=== PATIENT | female | born 1985 | race Caucasian/White ===

== ENCOUNTER 2016-12-24 11:36 | Emergency (ER) | payer MEDICAID, OTHER ==
[~2016-12-24] VITALS: Wt 50.5 kg
[~2016-12-24 11:36] MED LIST: ACET500C5 PO; CYCL-319 PO; HYDR-3010 PO; IBUP400T22 PO; ONDA4TAB14 PO; PRED20TA PO; PRENAT PO
--- NOTE | 2016-12-24 12:11 | ERD ---
ER Documentation Chief Complaint Date/Time DATE: 12/24/16 TIME: 12:07 Chief Complaint cough, milad earache, 4 mo preg HPI 31-year-old female complaining of cough and nasal congestion 2 weeks. Cough is nonproductive, worse at night. She reports shortness of breath with coughing fits. Patient also has headache and ear pain, as well as chest pain when coughing. Patient is approximately 4 months , RUSS 05/22/2017, . Patient stated that because of coughing, she is having pelvic pain as well. Denies vaginal bleeding. Denies fever or chills. Denies abdominal pain , vomiting or diarrhea. Positive sick contacts at home. ROS All systems reviewed and are negative except as per history of present illness. Medications Home Meds Active Scripts Sodium Chloride (Saline Nasal Mist) 126 Ml Mist, 2 SPRAY NASAL Q2H Y for NASAL CONGESTION, #1 BOTTLE Prov:BRITTANY STEIN NP 12/24/16 Acetaminophen* (Tylophen*) 500 Mg Capsule, 1 CAP PO Q6H Y for PAIN AND OR ELEVATED TEMP, #20 CAP Prov:BRITTANY STEIN NP 12/24/16 Ondansetron (Ondansetron Odt) 4 Mg Tab.rapdis, 4 MG PO Q8 Y for NAUSEA AND/OR VOMITING, #20 TAB Prov:HILARY BLEVINS NP 10/07/16 Acetaminophen* (Tylophen*) 500 Mg Capsule, 1 CAP PO Q6H Y for PAIN AND OR ELEVATED TEMP, #20 CAP Prov:HILARY BLEVINS NP 10/07/16 Multivit/Min/Fol Ac/Iron/Pren* ( S*) 1 Tab Tab, 1 TAB PO DAILY, #30 TAB Prov:SOBEIDA SIU PA-C 09/24/16 Acetaminophen* (Tylophen*) 500 Mg Capsule, 1 CAP PO Q6H Y for PAIN AND OR ELEVATED TEMP, #20 CAP Prov:SOBEIDA SIU PA-C 09/24/16 Ibuprofen* (Motrin*) 400 Mg Tab, 400 MG PO Q6, #30 TAB Prov:SHERYL SMITH NP 10/26/15 Cyclobenzaprine Hcl* (Cyclobenzaprine Hcl*) 10 Mg Tablet, 10 MG PO BID, #15 TAB Prov:SHERYL SMITH NP 10/26/15 Hydroxyzine Hcl* (Hydroxyzine Hcl*) 10 Mg Tablet, 10 MG PO Q6H Y for ITCHING, # 10 TAB Prov:BRENNON YEAGER PA-C 07/03/15 Prednisone* (Prednisone*) 20 Mg Tab, 40 MG PO DAILY for 3 Days, TAB Prov:BRENNON YEAGER PA-C 07/03/15 Allergies Allergies: Coded Allergies: No Known Drug Allergies (Verified Allergy, Unknown, 12/24/16) PMhx/Soc Medical and Surgical Hx: pt denies Medical Hx History of Surgery: No Anesthesia Reaction: No Hx Neurological Disorder: No Hx Respiratory Disorders: No Hx Cardiac Disorders: No Hx Psychiatric Problems: No Hx Miscellaneous Medical Probl: No Hx Alcohol Use: No Hx Substance Use: No Hx Tobacco Use: No Smoking Status: Never smoker Physical Exam Vitals Vital Signs Date Time Temp Pulse Resp B/P Pulse Ox O2 Delivery O2 Flow Rate FiO2 12/24/16 11:38 98.8 109 20 136/58 100 Physical Exam General impression: Well-developed, well-nourished. Alert, oriented, in no acute distress Head: Normocephalic, atraumatic. Eyes: PERRL, EOM normal. Conjunctiva not injected. ENT: External canals clear. TM's pearly jackson. Nasal mucosa erythematous and swollen with clear nasal discharge. Oral mucosa and oropharynx are normal. Neck: Supple, nontender. No lymphadenopathy. No nuchal rigidity. Respiration: Normal respiratory effort. Lungs clear to auscultate bilaterally. No wheezes, rales or rhonchi. Cardiovascular: Regular rate and rhythm. No murmurs or extra heart sounds. Abdomen: Abdomen normal to inspection. Nontender. No masses or organomegaly. Bowel sounds normal. Neuro: Mental status normal, speech normal. NURSING HOME MANAGER grossly intact. Skin: Normal turgor. No rash or lesions. Psych: Normal mood and affect. Results 24 hrs PROCEDURE: Obstetrical ultrasound. CLINICAL INDICATION: , evaluation. Pelvic pain. TECHNIQUE: Transabdominal sonographic images of the pelvis are obtained. COMPARISON: OB ultrasound 10/07/2016 FINDINGS: The cervix is closed with a length of 4.35 cm . Single intrauterine gestation. There is a vertex presentation. Measurements were made in order to determine age. The results are as follows: BPD = 4.40 cm HC = 16.03 cm AC = 14.06 cm FL = 2.81 cm Heart rate = 152 beats per minute The placenta is posterior. No evidence of placental abruption. Lower margin of the placenta is relationship to the cervix is not well visualized. Ovaries are not visualized. IMPRESSION: Single intrauterine gestation of approximately 19 weeks 0 days by ultrasound criteria. Estimated weight = 270 g; 65 percentile for estimated ultrasound age. Lower margin of the placenta in relationship to the cervix is not well visualized. Recommend follow-up examination. RPTAT: AADD .Giles Putnam MD, MD Date Time Electronically viewed and signed by .Giles Putnam MD, MD on 12/24/2016 12:48 .B/ CC: BRITTANY STEIN. MICROBIOLOGICAL LAB TECHNICIAN Procedures/MDM Patient is afebrile, in no respiratory distress. Lungs are clear to auscultate. I doubt that patient has pneumonia or bronchitis. Likely patient's symptoms are result of viral upper respiratory infection. She does not have any sign of otitis media or otitis externa, her ear pain is likely due to nasal congestion. OB ultrasound was obtained at patient's request due to pelvic pain. OB ultrasound showed a normal intrauterine . Patient appears well, stable for discharge and outpatient management. Medical decision making shared with patient and family. Education provided to patient and family. Patient and family expressed understanding of the plan. Medications on discharge: Saline nasal spray, Tylenol. Follow-up: Primary care provider in 2-3 days or return to ED if worse. BRITTANY STEIN NP Dec 24, 2016 12:11
[2016-12-24] MEDS ORDERED: ACET500C5 PO (12:13)
[2016-12-24] MEDS ORDERED: SODI126M NASAL (12:13)
--- NOTE | 2016-12-24 12:48 | RADRPT ---
PROCEDURE: Obstetrical ultrasound. CLINICAL INDICATION: , evaluation. Pelvic pain. TECHNIQUE: Transabdominal sonographic images of the pelvis are obtained. COMPARISON: OB ultrasound 10/07/2016 FINDINGS: The cervix is closed with a length of 4.35 cm . Single intrauterine gestation. There is a vertex presentation. Measurements were made in order to determine age. The results are as follows: BPD = 4.40 cm HC = 16.03 cm AC = 14.06 cm FL = 2.81 cm Heart rate = 152 beats per minute The placenta is posterior. No evidence of placental abruption. Lower margin of the placenta is rela tionship to the cervix is not well visualized. Ovaries are not visualized. IMPRESSION: Single intrauterine gestation of approximately 19 weeks 0 days by ultrasound criteria. Estimated weight = 270 g; 65 percentile for estimated ultrasound age. Lower margin of the placenta in relationship to the cervix is not well visualized. Recommend follow -up examination. RPTAT: AADD .Giles Putnam MD, MD Date Time Electronically viewed and signed by .Giles Putnam MD, on 12/24/2016 12:48 .B/
== END 2016-12-24 13:39 | disposition home or self-care (01) ==
LOC: FTE 11:36
DX: O99.89 Other specified diseases and conditions complicating pregnancy, childbirth and the puerperium (principal); R05 Cough; R09.81 Nasal congestion; R06.02 Shortness of breath; R51 Headache; H92.03 Otalgia, bilateral; Z3A.19 19 weeks gestation of pregnancy
CPT/HCPCS: 76805; Z7502

== ENCOUNTER 2017-01-23 00:34 | Outpatient (CLI) | payer BC, MEDICAID ==
[~2017-01-23] VITALS: Ht 152.4 cm; Wt 53.3 kg
[~2017-01-23 00:34] MED LIST changes: +SODI126M NASAL
--- NOTE | 2017-01-23 01:55 | PN ---
Date/Time of Note Date/Time of Note DATE: 01/23/17 TIME: 01:51 OB Subjective Subjective Subjective Patient is a 23 weeks of gestation She presents with a chief complaint of lower extremity numbness greater on the right side She reports numbness in her hips greater on the right side She already discussed this with her OB and has a referral to see a neurologist She reports that she is able to walk without pain OB Objective HEENT: WNL Heart: Rhythm Normal Lungs: Clear Abdomen: WNL Cervical Dilatation: None OB Assessment/Plan Reason for admission: other Other Assessment: Bilateral lower extremities Doppler to R/O DVT Patient to follow-up with a neurologist for further evaluation LUH BELLAMY Jan 23, 2017 01:55
[2017-01-23 02:03] VITALS: BP 105/58; PULSE 85; RESP 16; Ht 152.4 cm; Wt 53.3 kg
[2017-01-23 02:04] LABS: ADD UMIC YES; URINE BILIRUBIN (Dip) NEGATIVE (NEGATIVE); URINE BLOOD (Dip) TRACE (NEGATIVE); URINE COLOR LT. YELLOW (YELLOW); URINE GLUCOSE (Dip) NEGATIVE (NEGATIVE); URINE KETONES (Dip) NEGATIVE (NEGATIVE); URINE LEUKOCYTE ESTERASE (Dip) NEGATIVE (NEGATIVE); URINE NITRITE (Dip) NEGATIVE (NEGATIVE); URINE TOTAL PROTEIN (Dip) NEGATIVE (NEGATIVE); URINE UROBILINOGEN (Dip) 0.2 E.U./dL (0.1-1.0)
[2017-01-23 02:18] LABS: BACTERIA,URINE OCCASIONAL; SQUAMOUS EPITHELIAL CELL,UR OCCASIONAL; URINE RBCS 0-2 /HPF (0)
[2017-01-23] MEDS ORDERED: LACTATED RINGER'S 1,000 ML IV ONE (02:30)
--- NOTE | 2017-01-23 03:23 | RADRPT ---
PROCEDURE: ULTRASOUND BILATERAL LOWER EXTREMITY VENOUS CLINICAL INDICATION: 31-year-old female with lower extremity pain. TECHNIQUE: Multiple sonographic images of the bilateral lower extremity deep venous system was obt ained utilizing grayscale, color-flow, compressive sonography and doppler imaging with augmentation. The images were reviewed on a PACS workstation. COMPARISON: None. FINDINGS: There is normal compressibility and flow within the common femoral, deep femoral, superficial femora l, popliteal, posterior tibial and peroneal veins. IMPRESSION: No sonographic evidence for deep venous thrombosis. .Omega Machado MD, MD Date Time Electronically viewed and signed by .Omega Machado MD, MD on 01/23/2017 03:22 .Parish/
--- NOTE | 2017-01-23 03:27 | RADRPT ---
PROCEDURE: ULTRASOUND INGUINAL SOFT TISSUE CLINICAL INDICATION: 31-year-old female with inguinal pain. TECHNIQUE: Multiple sonographic images of the right and left inguinal regions were obtained. The images were reviewed on a high-resolution PACS workstation. COMPARISON: None. FINDINGS: There is no evidence for abnormal echogenicity or peristalsis within the inguinal region. There is no evidence for a fluid collection. IMPRESSION: Unremarkable bilateral inguinal soft tissue ultrasound. .Omega Machado MD, MD Date Time Electronically viewed and signed by .Omega Machado MD, MD on 01/23/2017 03:26 .M/
--- NOTE | 2017-01-23 04:27 | TRIAGE ---
OB Triage Datetime Report Generated by CPN: 01/23/2017 04:26 Datetime: 01/23/2017 04:15 Stage of : OB Triage Datetime: 01/23/2017 04:00 Stage of : OB Triage Labor Evaluation Frequency: NONE Monitor Mode: External Duration (sec)2399: NONE Pattern: Normal: <= 5 Contractions in 10 Minutes Heart Rate FHR Baseline Rate: 145 Monitor Mode: External US FHR Baseline Changes: No Baseline Change Comments: APPROPRIATE FOR GESTATIONAL AGE Datetime: 01/23/2017 03:00 Labor Evaluation Frequency: NONE Monitor Mode: External Duration (sec)2399: NONE Pattern: Normal: <= 5 Contractions in 10 Minutes Heart Rate FHR Baseline Rate: 145 Monitor Mode: External US FHR Baseline Changes: No Baseline Change Comments: APPROPRIATE FOR GA Datetime: 01/23/2017 02:00 Labor Evaluation Frequency: NONE Monitor Mode: External Duration (sec)2399: NONE Pattern: Normal: <= 5 Contractions in 10 Minutes Heart Rate FHR Baseline Rate: 145 Monitor Mode: External US FHR Baseline Changes: No Baseline Change Variability: Moderate 6-25 bpm Datetime: 01/23/2017 01:07 Assessment Type: Triage EGA: 23.0 Maternal Assessment Level of Consciousness: Fully Conscious Headache: Denies Blurred Vision: No Respiratory Effort: Unlabored; Regular Rhythm; Equal Expansion Nausea/Vomiting: Denies RUQ Epigastric Pain: Denies Facial Edema: None Fall Risk Assessment History of Falling: (0) No Secondary Diagnosis: (0) No Ambulatory Aid: (0) Bedrest/Nurse Assist IV Therapy: (0) No Gait: (0) Normal/Bedrest/Immobile Mental Status: (0) Oriented to Own Ability Fall Score: 0 Fall Risk Score Definition: No Risk: No action required Datetime: 01/23/2017 01:06 Time of Arrival: 01/23/2017 00:23 Arrived By: Wheelchair Arrived From: Home Chief Complaint: ABD PAIN AND R LEG NUMBNESS X1DAY Movement: Present Contractions: Denies/Absent Rupture of Membranes: Denies Vaginal Bleeding: None Vaginal Discharge: Present Recent Sexual Intercouse: Denies Abdominal Trauma: Not Applicable Patient Complaints: Other Time Provider Notified: 01/23/2017 01:38 Provider Notified: DR BELLAMY Initial Plan: EFM,CALL OB, DOPPLER OF BILATERAL LOWER EXTREMITIES (Annotations: Data stored by DAVID Acuña on behalf of user)
== END 2017-01-23 04:20 | disposition home or self-care (01) ==
LOC: OBT 00:34 → L-D 00:39 → OBT 04:20
PROVIDERS: ATTEND Obstetrics & Gynecology
DX: O60.02 Preterm labor without delivery, second trimester (principal); O26.892 Other specified pregnancy related conditions, second trimester; M54.30 Sciatica, unspecified side; Z3A.23 23 weeks gestation of pregnancy
CPT/HCPCS: 36415; 76705; 81001; 81003; 93923; 96360; 96361; J7120; Z7500; G0463

== ENCOUNTER 2017-02-10 22:11 | Outpatient (CLI) | payer BC ==
[~2017-02-10] VITALS: Ht 154.9 cm; Wt 55.5 kg
[~2017-02-10 22:11] MED LIST changes: -ACET500C5 PO; -CYCL-319 PO; -HYDR-3010 PO; -IBUP400T22 PO; -ONDA4TAB14 PO; -PRED20TA PO; -SODI126M NASAL
[2017-02-10 22:35] VITALS: Ht 154.9 cm; Wt 55.5 kg
[2017-02-10 22:36] VITALS: BP 120/67; PULSE 99; RESP 20
[2017-02-10] MEDS ORDERED: FERR325C PO (22:40)
[2017-02-10] MEDS ORDERED: CALC-516 PO (22:40)
[2017-02-11] MEDS ORDERED: ACETAMINOPHEN 500 MG TAB PO ONE (00:10)
[2017-02-11 01:18] LABS: ADD UMIC NO; URINE BILIRUBIN (Dip) NEGATIVE (NEGATIVE); URINE BLOOD (Dip) NEGATIVE (NEGATIVE); URINE COLOR LT. YELLOW (YELLOW); URINE GLUCOSE (Dip) NEGATIVE (NEGATIVE); URINE KETONES (Dip) NEGATIVE (NEGATIVE); URINE LEUKOCYTE ESTERASE (Dip) NEGATIVE (NEGATIVE); URINE NITRITE (Dip) NEGATIVE (NEGATIVE); URINE TOTAL PROTEIN (Dip) NEGATIVE (NEGATIVE); URINE UROBILINOGEN (Dip) 0.2 E.U./dL (0.1-1.0)
--- NOTE | 2017-02-11 02:36 | RADRPT ---
PROCEDURE: Limited OB ultrasound CLINICAL INDICATION: labor TECHNIQUE: Limited sonographic evaluation of the gravid uterus was performed to assess the cervica l length COMPARISON: 01/08/2017. FINDINGS: Cervix measures 4.02 cm in length. IMPRESSION: Intrauterine with a cervical length of 4.02 cm. RPTAT: HMVK .Dereck Atkinson MD, Date Time Electronically viewed and signed by .Dereck Atkinson MD, MD on 02/11/2017 02:36 .K/
--- NOTE | 2017-02-11 04:06 | TRIAGE ---
OB Triage Datetime Report Generated by CPN: 02/11/2017 04:06 Datetime: 02/11/2017 03:00 Stage of : OB Triage Labor Evaluation Frequency: 0 Monitor Mode: External Pattern: Normal: <= 5 Contractions in 10 Minutes Resting Tone Lismore: Relaxed Heart Rate FHR Baseline Rate: 135 Monitor Mode: External US Variability: Moderate 6-25 bpm Accelerations: 15X15 Decelerations: None Category: Category I Pain Assessment Pain Scale: 3 Pain Presence: Intermittent Pain Type: Pressure Pain Location: Abdomen Pain Goal: 3 Pain Relief Measures: Comfort Measures Datetime: 02/11/2017 02:00 Stage of : OB Triage Labor Evaluation Frequency: 0 Monitor Mode: External Pattern: Normal: <= 5 Contractions in 10 Minutes Resting Tone Lismore: Relaxed Heart Rate FHR Baseline Rate: 140 Monitor Mode: External US Variability: Moderate 6-25 bpm Accelerations: 15X15 Decelerations: None Category: Category I Pain Assessment Pain Scale: 5 Pain Presence: Intermittent Pain Type: Pressure Pain Location: Abdomen Pain Goal: 3 Pain Relief Measures: Comfort Measures Datetime: 02/11/2017 01:22 Monitor Mode: External US Datetime: 02/11/2017 01:21 Comments: DOPPLER USED TO FIND FHTS Datetime: 02/11/2017 01:16 Monitor Mode: External Datetime: 02/11/2017 01:00 Stage of : OB Triage Labor Evaluation Frequency: X1 Monitor Mode: External Duration (sec)2399: 50 Quality: Mild Pattern: Normal: <= 5 Contractions in 10 Minutes Resting Tone Lismore: Relaxed Heart Rate FHR Baseline Rate: 145 Monitor Mode: External US Variability: Moderate 6-25 bpm Accelerations: 15X15 Decelerations: None Category: Category I Pain Assessment Pain Scale: 6 Pain Presence: Intermittent Pain Type: Pressure Pain Location: Abdomen Pain Goal: 3 Pain Relief Measures: Pain Medication Given (Annotations: MED WAS GIVEN AT 0019) Datetime: 02/11/2017 00:35 Stage of : OB Triage Datetime: 02/11/2017 00:00 Stage of : OB Triage Labor Evaluation Frequency: 0 Monitor Mode: External Pattern: Normal: <= 5 Contractions in 10 Minutes Resting Tone Lismore: Relaxed Heart Rate FHR Baseline Rate: 145 Monitor Mode: External US Variability: Moderate 6-25 bpm Accelerations: 15X15 Decelerations: None Category: Category I Pain Assessment Pain Scale: 6 Pain Presence: Intermittent Pain Type: Pressure Pain Location: Abdomen Pain Goal: 3 Pain Relief Measures: Comfort Measures Datetime: 02/10/2017 23:47 Stage of : OB Triage Datetime: 02/10/2017 23:42 Stage of : OB Triage Datetime: 02/10/2017 23:28 Stage of : OB Triage Datetime: 02/10/2017 23:00 Stage of : OB Triage Temperature Route: Oral Labor Evaluation Frequency: 0 Monitor Mode: External Pattern: Normal: <= 5 Contractions in 10 Minutes Resting Tone Lismore: Relaxed Heart Rate FHR Baseline Rate: 150 Monitor Mode: External US Variability: Moderate 6-25 bpm Accelerations: 15X15 Decelerations: None Category: Category I Pain Assessment Pain Scale: 6 Pain Presence: Intermittent Pain Type: Pressure Pain Location: Abdomen Pain Goal: 3 Pain Relief Measures: Comfort Measures Datetime: 02/10/2017 22:28 Assessment Type: Triage Maternal Assessment Level of Consciousness: Fully Conscious DTR's/Clonus: DTRs 2+; No Clonus Headache: Denies Blurred Vision: No Respiratory Effort: Unlabored Breath Sounds, Left: Clear and Equal Breath Sounds, Right: Clear and Equal Nausea/Vomiting: Denies RUQ Epigastric Pain: Denies Lower Extremities Edema: None Degree: None Upper Extremities Edema: None Degree: None Facial Edema: None Fall Risk Assessment History of Falling: (0) No Secondary Diagnosis: (0) No Ambulatory Aid: (0) Bedrest/Nurse Assist IV Therapy: (0) No Gait: (0) Normal/Bedrest/Immobile Mental Status: (0) Oriented to Own Ability Fall Score: 0 Fall Risk Score Definition: No Risk: No action required Datetime: 02/10/2017 22:21 Stage of : OB Triage Monitor Mode: External Monitor Mode: External US Datetime: 02/10/2017 22:19 Time of Arrival: 02/10/2017 22:09 EGA: 25.4 Arrived By: Wheelchair Arrived From: Home Chief Complaint: K sided low abd pain since yesterday. SOB Movement: Present Contractions: Denies/Absent Rupture of Membranes: Denies Vaginal Bleeding: None Vaginal Discharge: Denies Recent Sexual Intercouse: Denies Abdominal Trauma: Not Applicable Patient Complaints: Cramping Time Provider Notified: 02/11/2017 23:47 Provider Notified: JOSESITO Initial Plan: VS, EFM Datetime: 01/23/2017 01:07 EGA: 23.0 Fall Score: 0 Fall Risk Score Definition: No Risk: No action required
--- NOTE | 2017-02-11 06:53 | QN ---
Documentation Comment 31-year-old with IUP at 25 weeks and 4 days presented with complaint of left lower abdominal pain and shortness of breath since the night. Patient denies any leaking of fluid, vaginal bleeding, uterine contractions or decreased movement. Patient had a history of asthma in the past currently using albuterol. She also reports a recent episodes of cold. Complaining of cough as well. Physical examination: General appearance, alert and oriented 4, patient does not appear to be in any acute distress. She is in moderate distress Abdomen: Soft, gravid, fundal height consistent with gestational age , No uterine tenderness, there is mild tenderness in the left lower abdomen. No rebound tenderness, no guarding, no rigidity, no evidence of acute abdomen. Extremities: No calf tenderness, no click, no edema Lungs: Post expiratory wheezing in the mid to lower part of the lung noted CV: RRR HEENT: Congestion of the nasal mucosa otherwise unremarkable. PROCEDURE: Limited OB ultrasound CLINICAL INDICATION: labor TECHNIQUE: Limited sonographic evaluation of the gravid uterus was performed to assess the cervical length COMPARISON: 01/08/2017. FINDINGS: Cervix measures 4.02 cm in length. IMPRESSION: Intrauterine with a cervical length of 4.02 cm. RPTAT: HMVK Assessment: IUP at 25 weeks and 4 days Left lower abdominal pain, likely related to musculoskeletal round ligament pain. No evidence of UTI no evidence of acute abdomen Shortness of breath, history of asthma, post expiratory wheezing Symptoms related to worsening of asthma due to recent cold. Patient was given nebulizer treatment while in triage as well as receiving Robitussin for cough. Symptoms significantly improved. She also received a dose of thousand milligrams of Tylenol. Patient reports significant improvement of her symptoms. She denied any symptom at the time of discharge. Plan: DC patient home Continue using albuterol as needed Robitussin as needed cough Expectant management. Using Tylenol as needed pain or cold symptoms Follow-up with her OB clinic in 1-2 days or sooner as needed any other problem next Strict labor precaution and kick count discussed. Adequate p.o. warm fluid hydration discussed with the patient. Patient verbalized understanding and all questions were answered to the patient's best satisfaction JOSE BELLAMY MD Feb 11, 2017 06:53
== END 2017-02-11 03:20 | disposition home or self-care (01) ==
LOC: OBT 22:11 → L-D 22:11 → OBT 02-11 03:20
PROVIDERS: ATTEND Obstetrics & Gynecology
DX: O26.892 Other specified pregnancy related conditions, second trimester (principal); R10.32 Left lower quadrant pain; R06.02 Shortness of breath; J45.909 Unspecified asthma, uncomplicated
CPT/HCPCS: 76817; 81003; Z7500; Z7610; G0463

== ENCOUNTER 2017-05-08 09:56 | Inpatient (IN) | payer BC ==
[~2017-05-08] VITALS: Ht 152.4 cm; Wt 63.9 kg
[~2017-05-08 09:56] MED LIST changes: +CALC-516 PO; +FERR325C PO; +OXYTOCIN 30 UNITS/LR 500 ML BAG IV ONE
--- NOTE | 2017-05-08 10:52 | RADRPT ---
PROCEDURE: Biophysical profile CLINICAL INDICATION: distress, leaking fluid. TECHNIQUE: Color and venegas-scale ultrasound images of an intrauterine gestation were obtained. COMPARISON: None FINDINGS: A single live intrauterine gestation is identified in breech position with an estimated heart rate of 146 beats per minute. The placenta is located laterally and is a grade III. The cervix is obscured by body shadows. No evidence of abruption identified. JACIEL is 2.7 cm. movement 2/2. tone 2/2. breathing movement 2/2. Qualitative AFV 0/2 Total biophysical profile 04/15 IMPRESSION: 04/15 biophysical profile. Oligohydramnios with an JACIEL of 2.7 cm. RPTAT: AA .Thomas Abad MD, MD Date Time Electronically viewed and signed by .Thomas Abad MD, MD on 05/08/2017 10:52 .P/
--- NOTE | 2017-05-08 11:04 | TRIAGE ---
OB Triage Datetime Report Generated by CPN: 05/08/2017 11:03 Datetime: 05/08/2017 11:02 Assessment Type: Triage Maternal Assessment Level of Consciousness: Fully Conscious DTR's/Clonus: DTRs 2+; No Clonus Headache: Denies Blurred Vision: No Respiratory Effort: Unlabored; Regular Rhythm; Equal Expansion Breath Sounds, Left: Clear and Equal Breath Sounds, Right: Clear and Equal Nausea/Vomiting: Denies RUQ Epigastric Pain: Denies Lower Extremities Edema: None Degree: None Upper Extremities Edema: None Degree: None Facial Edema: None Fall Risk Assessment History of Falling: (0) No Secondary Diagnosis: (0) No Ambulatory Aid: (0) Bedrest/Nurse Assist IV Therapy: (0) No Gait: (0) Normal/Bedrest/Immobile Mental Status: (0) Oriented to Own Ability Fall Score: 0 Fall Risk Score Definition: No Risk: No action required Datetime: 05/08/2017 10:59 Time of Arrival: 05/08/2017 09:51 EGA: 38.0 Arrived By: Ambulatory Arrived From: Home Chief Complaint: PT CAME IN C/O SROM/UC'S Movement: Present Contractions: Irregular Rupture of Membranes: Ruptured Vaginal Bleeding: None Vaginal Discharge: Denies Recent Sexual Intercouse: Denies Abdominal Trauma: Not Applicable Patient Complaints: Contractions; Cramping; Back Pain Time Provider Notified: 05/08/2017 10:00 Provider Notified: [facility] Initial Plan: BPP/SVE/ROM PLUS/STERILE SPEC/ Datetime: 05/08/2017 10:29 Comments: MONITORS OFF FOR BEDSIDE U/S. Datetime: 05/08/2017 10:18 Pool: Positive Datetime: 05/08/2017 10:12 Vaginal Exam Dilatation (cms): 0.0 Station: -3 Exam By: ARLETTE Garcia Vaginal Bleeding: None Cervix, Consistency: Firm Cervix, Position: Posterior Datetime: 05/08/2017 10:01 Labor Evaluation Monitor Mode: External Heart Rate Monitor Mode: External US Datetime: 02/10/2017 22:28 Fall Score: 0 Fall Risk Score Definition: No Risk: No action required Datetime: 02/10/2017 22:19 EGA: 25.4 Datetime: 01/23/2017 01:07 EGA: 23.0 Fall Score: 0 Fall Risk Score Definition: No Risk: No action required
[2017-05-08 11:06] VITALS: Ht 152.4 cm; Wt 63.9 kg
[2017-05-08 11:07] VITALS: BP 135/79; PULSE 92; RESP 18
[2017-05-08] MEDS ORDERED: LACTATED RINGER'S 1,000 ML IV SCH (11:13)
[2017-05-08] MEDS ORDERED: OXYTOCIN 30 UNITS/LR 500 ML IV PRN ×2 (11:30→23:00)
[2017-05-08] MEDS ORDERED: OXYTOCIN 30 UNITS/LR 500 ML IV SCH (11:30)
[2017-05-08] MEDS ORDERED: METHYLERGONOVINE 0.2 MG INJ IM PRN ×2 (11:30→23:00)
[2017-05-08] MEDS ORDERED: AMPICILLIN 2 GM/NS (PMX) 100 ML IV ONE (11:30)
[2017-05-08] MEDS ORDERED: MISOPROSTOL 200 MCG TAB PR PRN ×2 (11:30→23:00)
[2017-05-08] MEDS ORDERED: CEFAZOLIN 2 GM/50 ML (PMX) 50 ML IV SCH (11:30)
[2017-05-08] MEDS ORDERED: CARBOPROST 250 MCG INJ IM PRN ×2 (11:30→23:00)
[2017-05-08 11:55] LABS: BASOPHIL # 0.1 10^3/ul (0.0-0.1); BASOPHILS % 0.5 % (0.0-2.0); EOSINOPHILS # 0.1 10^3/ul (0.0-0.5); EOSINOPHILS % 0.5 % (0.0-7.0); HEMATOCRIT 36.5 % (37.0-47.0); HEMOGLOBIN 12.7 g/dl (12.0-16.0); LYMPHOCYTES # 2.3 10^3/ul (0.8-2.9); LYMPHOCYTES % 19.7 % (15.0-51.0); MEAN CORPUSCULAR HEMOGLOBIN 30.1 pg (29.0-33.0); MEAN CORPUSCULAR HGB CONC 34.8 g/dl (32.0-37.0); MEAN CORPUSCULAR VOLUME 86.5 fl (82.0-101.0); MEAN PLATELET VOLUME 9.9 fl (7.4-10.4); MONOCYTE # 0.6 10^3/ul (0.3-0.9); MONOCYTES % 5.3 % (0.0-11.0); NEUTROPHIL # 8.2 10^3/ul (1.6-7.5); NEUTROPHILS % 71.7 % (39.0-77.0); PLATELET COUNT 342 10^3/UL (140-415); RED BLOOD COUNT 4.22 10^6/ul (4.20-5.40); RED CELL DISTRIBUTION WIDTH 14.4 % (11.5-14.5); WHITE BLOOD COUNT 11.5 10^3/ul (4.8-10.8)
[2017-05-08 12:17] LABS: INR 0.86; PROTIME 11.7 Sec (12.2-14.2); PT RATIO 0.9
[2017-05-08 12:18] LABS: PARTIAL THROMBOPLASTIN TIME 26.7 Sec (25.0-35.0)
[2017-05-08] MEDS ORDERED: AMPICILLIN 1 GM/NS (PMX) 50 ML IV SCH (15:30)
[2017-05-08] MEDS ORDERED: morphine SULFATE/PF (10 MG/10 ML) INJ ONE (17:02)
[2017-05-08] MEDS ORDERED: FENTAnyl 50 MCG/ML VIAL ONE (17:02)
[2017-05-08] MEDS ORDERED: PROPOFOL 20 ML ONE (17:25)
[2017-05-08] MEDS ORDERED: KETAMINE 500 MG INJ ONE (17:26)
[2017-05-08] MEDS ORDERED: MIDAZOLAM 1 MG/ML 2 ML INJ ONE (17:26)
[2017-05-08] MEDS ORDERED: GLYCOPYRROLATE 0.4 MG INJ ONE (17:33)
--- NOTE | 2017-05-08 18:22 | OPR ---
Operative Report Planned Procedure Free Text/Dictation 30 years old female 1 para 0 EDC May 22, 2017 admitted at 38 weeks gestation with premature rupture of membranes breech presentation heart rate category 1 she is being prepared for primary due to breech presentation premature rupture member Procedure date May 08, 2017 Procedure(s) Primary Performed by: MARTIN CALDWELL MD Assisting provider: QUINTON MURPHY Anesthesiologist: CHRIS CALDWELL Pre-procedure diagnosis Term breech presentation and premature rupture of membrane Anesthesia Type: spinal Procedure Description Under satisfactory [spine] anesthesia, the patient was prepped and draped and placed in a supine position, tilted to the left. Pfannenstiel incision was made , carried through the subcutaneous tissue. Bleeders brought under control with electrocautery. Fascia incised to the length of the incision. Rectus muscles from the fascia, divided midline. Peritoneum exposed, entered through a transverse incision. Exploration of abdomen revealed gravid uterus. Normal- appearing tubes and ovaries bladder flap was developed. Transverse incision was made in the lower segment of the uterus. Amniotic sac ruptured. [] Light meconium stain amniotic fluid noted. Light baby boy delivered from rosa breech presentation shoulders delivered without any difficulty head delivered with Mauriceau maneuver [] Nasal oropharyngeal suction was performed. baby was handed to the team for immediate attention. The placenta was delivered manually intact inspected complete. Uterine cavity was cleaned with wet sponge and drainage established. Uterus closed in 2 layers using [#1 Monocryl] in continuous fashion. Peritoneal cavity irrigated with warm saline. Sponge, needle and instrument count reported to be correct. Abdominal peritoneum closed with 0 chromic catgut [] continuously. Rectus muscle approximated with [3 interrupted 2-0 chromic catgut]. Fascia closed with [#1 PDS], subcutaneous tissue approximated with several interrupted 2-0 chromic catgut skin closed with danelle. Estimated blood loss [] 600 mL. Urine bag contained 250 []mL of clear urine Post-Procedure Findings: Live Baby [boy], Apgars [9] and [9], weight 3220 [], position [rosa breech], [ ] presentation breech Complications: None Pt Condition post procedure: stable Physician Certification I, the undersigned physician, hereby certify that I have discussed the procedure described in this consent form with this patient (or the patient's legal food service representative), including: * The risk and benefits of the procedure; * Any adverse reactions that may reasonably be expected to occur; * Any alternative efficacious methods of treatment which may be medically viable ; * The potential problems that may occur during recuperation; * Potential for blood transfusion and associated risks/benefits; and * Any research or economic interest I may have regarding this treatment. I further certify that the patient/legally responsible person was encouraged to ask question and that all questions were answered. MARTIN CALDWELL MD May 08, 2017 18:22
--- NOTE | 2017-05-08 18:31 | HP ---
Date/Time of Note Date/Time of Note DATE: 05/08/17 TIME: 18:22 OB - History Hx of Present Free Text/Dictation 30 years old female 1 para 0 EDC May 22, 2017 admitted to at 38 weeks gestation with premature rupture of membrane and breech presented she is being prepared to undergo primary C- section for the above indications This patient has been under the care of the [facility] her was not complicated with gestational diabetes -induced hypertension or any other serious surgical or medical or infectious condition [employer] history [place] at age 10 regular. Every 28 days lasting for 5 days no history of hospitalization for surgical or medical condition Allergies no known drug allergies Social habit denies drinking smoking using illicit drugs Review of system within normal Physical exam 5 feet 141 pounds total weight gain during the 24 pounds Temperature 98.7 heart rate 78 respirations 17 blood pressure 104/65 Head ears nose and throat negative Neck supple no thyromegaly Lungs clear to P&A Heart normal sinus rhythm no murmur Breasts status compatible with the state of the no abnormal palpable mass no nipple discharge no axillary adenopathy Abdomen fundal height 37 cm from symphysis pubis with Víctor maneuvers breech presentation confirmed Pelvic examination deferred Extremities no edema no varicosities Impression Intrauterine at 38 weeks breech presentation premature rupture of membranes in labor Chief Complaint: 38 weeks breech presentation premature rupture of membrane in lab Estimated Due Date: May 22, 2017 : 1 Para: 0 Care: Good Care Ultrasounds: Normal mid trimester US Obstetrical Complications: None Medical Complications: Musculoskeletal Past Family/Social History * Past Medical, Surgical, Family and Obstetric Histories reviewed from chart. Rubella: immune RPR/VDRL: Negative GBS Status: Negative HBsAG: Negative OB Admission Exam Vital Signs Vital Signs Vital Signs Date Time Temp Pulse Resp B/P Pulse Ox O2 Delivery O2 Flow Rate FiO2 05/08/17 11:07 98.7 92 18 135/79 99 Room Air Physical Exam HEENT: WNL Lungs: Clear, Equal Abdomen: WNL Extremities: Normal Reflexes: Normal Membranes: Ruptured Amniotic Fluid: Clear Heart Rate: 130's Accelerations: Accelerations Present Decelerations: No Decelerations Contractions on Admission: 6-10 Minutes Apart Intensity: Moderate Last 72 hours Lab Results CBC & BMP 05/08/17 11:15 MARTIN CALDWELL MD May 08, 2017 18:31
[2017-05-08] MEDS: KETOROLAC 30 MG INJ IV PRN (19:27)
[2017-05-08] MEDS ORDERED: NALOXONE (0.4 MG/ML) INJ IV PRN (19:30)
[2017-05-08] MEDS ORDERED: ONDANSETRON 4 MG INJ IV PRN (19:30)
[2017-05-08] MEDS ORDERED: DIPHENHYDRAMINE 50 MG INJ IV PRN (19:30)
[2017-05-08] MEDS ORDERED: HYDROmorphONE 1 MG/ML SYG IV PRN (19:30)
[2017-05-08] MEDS: HYDROmorphONE 1 MG/ML SYG IV PRN (21:31)
[2017-05-08 22:30] VITALS: BP 129/65; PULSE 81; RESP 18
[2017-05-08] MEDS ORDERED: LANOLIN 7 GM TUBE TOP PRN (23:00)
[2017-05-08] MEDS ORDERED: ACETAMINOPHEN/CODEINE #3 TAB PO PRN ×2 (23:00)
[2017-05-08] MEDS ORDERED: CEFAZOLIN 1 GM/50 ML (PMX) 50 ML IVPB SCH (23:00)
[2017-05-08] MEDS ORDERED: OXYCODONE/ACETAMINOPHEN (5/325) TAB PO PRN ×2 (23:00)
[2017-05-09] VITALS: BP 123/72; PULSE 81; RESP 18
[2017-05-09] MEDS ORDERED: IBUPROFEN 600 MG TAB PO SCH
[2017-05-09] MEDS: KETOROLAC 30 MG INJ IV PRN ×3 (01:36→17:50)
[2017-05-09] MEDS: OXYTOCIN 30 UNITS/LR 500 ML IV SCH ×7 (01:41→22:38)
[2017-05-09] MEDS: HYDROmorphONE 1 MG/ML SYG IV PRN (03:34)
[2017-05-09 04:10] VITALS: BP 107/55; PULSE 78; RESP 18
[2017-05-09] MEDS: IBUPROFEN 600 MG TAB PO SCH ×4 (06:00→17:53)
[2017-05-09 07:41] LABS: BASOPHILS % 0.3 % (0.0-2.0); EOSINOPHILS # 0.1 10^3/ul (0.0-0.5); EOSINOPHILS % 0.6 % (0.0-7.0); HEMATOCRIT 32.4 % (37.0-47.0); HEMOGLOBIN 10.8 g/dl (12.0-16.0); LYMPHOCYTES % 14.7 % (15.0-51.0); MEAN CORPUSCULAR HEMOGLOBIN 28.7 pg (29.0-33.0); MEAN CORPUSCULAR HGB CONC 33.3 g/dl (32.0-37.0); MEAN CORPUSCULAR VOLUME 86.2 fl (82.0-101.0); MEAN PLATELET VOLUME 9.6 fl (7.4-10.4); MONOCYTE # 0.6 10^3/ul (0.3-0.9); MONOCYTES % 4.6 % (0.0-11.0); NEUTROPHIL # 10.8 10^3/ul (1.6-7.5); NEUTROPHILS % 78.1 % (39.0-77.0); PLATELET COUNT 270 10^3/UL (140-415); RED BLOOD COUNT 3.76 10^6/ul (4.20-5.40); RED CELL DISTRIBUTION WIDTH 14.3 % (11.5-14.5); WHITE BLOOD COUNT 13.8 10^3/ul (4.8-10.8)
[2017-05-09 08:15] VITALS: BP 112/66; PULSE 94; RESP 16
[2017-05-09 08:21] LABS: ADD SCAN DIFF NO
--- NOTE | 2017-05-09 09:34 | QN ---
Documentation Comment s/p c/s Subjective: no complaint except LAP Objective: Afebrile, VSS NAD A&O Abdomen: soft, appropriate tender Incision: no sign of bleeding/infection mild lochia Extremity: 1+ edema bilaterally Assessment: S/p C/S Recovering Well Plan: current care ELEAZAR VEGA MD May 09, 2017 09:34
[2017-05-09 12:51] VITALS: BP 107/59; PULSE 92; RESP 14
[2017-05-09 16:27] VITALS: BP 110/60; PULSE 95; RESP 16
[2017-05-09 20:45] VITALS: BP 113/55; PULSE 99; RESP 18
[2017-05-09] MEDS: SENNA/DOCUSATE NA (8.6MG/50MG) TAB PO SCH (21:53)
[2017-05-10] MEDS: IBUPROFEN 600 MG TAB PO SCH ×5 (00:28→23:44)
[2017-05-10] MEDS: OXYTOCIN 30 UNITS/LR 500 ML IV SCH ×3 (02:38→09:25)
[2017-05-10 04:00] VITALS: BP 108/63; PULSE 98; RESP 17
[2017-05-10 07:30] VITALS: BP 120/75; PULSE 109; RESP 19
[2017-05-10] MEDS: SENNA/DOCUSATE NA (8.6MG/50MG) TAB PO SCH ×2 (09:24→21:14)
[2017-05-10 15:45] VITALS: BP 122/74; PULSE 103; RESP 17
--- NOTE | 2017-05-10 18:30 | QN ---
Documentation Comment pod 2 pt doing well vss exam wnl cdi q/p pod 2 contiune care DESHAUN REYNOLDS MD May 10, 2017 18:29
[2017-05-10 19:50] VITALS: BP 106/67; PULSE 100; RESP 18
[2017-05-11 04:30] VITALS: BP 120/68; PULSE 78
[2017-05-11] MEDS: IBUPROFEN 600 MG TAB PO SCH ×2 (05:42→12:00)
[2017-05-11 08:20] VITALS: BP 111/60; PULSE 83; RESP 20
[2017-05-11] MEDS ORDERED: DIPHTH/TET/ACEL PERTUSS (ADULT) 0.5 ML VIAL IM* ONE (09:00)
[2017-05-11] MEDS: SENNA/DOCUSATE NA (8.6MG/50MG) TAB PO SCH (09:43)
--- NOTE | 2017-05-11 13:21 | PD.PPDC ---
[employer] MANAGER Discharge Instruction Condition Patient Condition: Good Diet Diet: Resume Regular Diet Wound/Drain Care Instructions Wound/Drain Care Instructions: Remove Steri Strips in 1 week Follow-up Follow-up with Physician: 4 Provider Information: Appointment clinic in 4 days to discontinue danelle post instructions given Return to clinic for [employer] Instructions: Fever greater than 101 Chills Worsening abdominal pain Excessive Vaginal Bleeding More than 2 pads per hour Unable to tolerate diet Surgical Instructions: Incisional Drainage Incisional Redness MARTIN CALDWELL MD May 11, 2017 13:21
--- NOTE | 2017-05-11 13:24 | DS ---
Date/Time of Note Date/Time of Note DATE: 05/11/17 TIME: 13:22 Discharge Summary Admission/Discharge Info Admit Date/Time May 08, 2017 at 10:57 Discharge Date/Time May 11, 2070 at 1320 Discharge Diagnosis Post day 3 for breech presentation Patient Condition: Good Procedures for breech presentation Hx of Present Illness Term breech presentation Hospital Course Satisfactory uneventful Home Meds Active Scripts Multivit/Min/Fol Ac/Iron/Pren* ( S*) 1 Tab Tab, 1 TAB PO DAILY, #30 TAB Prov:SOBEIDA SIU PA-C 09/24/16 Reported Medications Calcium Carbonate/Vitamin D3 (OYSTER SHELL CALCIUM TABLET) 1 Each Tablet, 1 EACH PO DAILY, TAB 02/10/17 Ferrous Sulfate (Iron) 325 Mg Capsule.er, 325 MG PO DAILY, CAP 02/10/17 Follow-up Plan Appointment clinic in 3-4 days to discontinue danelle patient received post C- section, instruction Primary Care Provider Zak Cox Time spent on discharge: < 30 minutes MARTIN CALDWELL MD May 11, 2017 13:24
== END 2017-05-11 16:04 | disposition home or self-care (01) | DRG 766 ==
LOC: L-D 09:56 → OBT 09:56 → L-D 10:57 → PP1 22:29
PROVIDERS: ADMIT Obstetrics & Gynecology; ATTEND Obstetrics & Gynecology
PROC: 10D00Z1 Extraction of Products of Conception, Low, Open Approach (ICD-10-PCS; principal; 2017-05-08 17:45)
DX: O32.1XX0 Maternal care for breech presentation, not applicable or unspecified (principal); O76 Abnormality in fetal heart rate and rhythm complicating labor and delivery; Z3A.37 37 weeks gestation of pregnancy; Z37.0 Single live birth
CPT/HCPCS: 76818; 84112; 85025; 85610; 85730; 86592; 86850; 86900; 86901; 87340; 90715; 94760; 99464; G0463; J0290; J0690; J1170; J1200; J1885; J2250; J2274; J2590; J3010; J7120

== ENCOUNTER 2017-07-14 14:47 | Emergency (ER) | payer BC ==
[~2017-07-14] VITALS: Ht 152.4 cm; Wt 55.0 kg
[~2017-07-14 14:47] MED LIST changes: -OXYTOCIN 30 UNITS/LR 500 ML BAG IV ONE
[2017-07-14 15:11] VITALS: Ht 152.4 cm; Wt 55.0 kg
[2017-07-14] MEDS ORDERED: IBUPROFEN 600 MG TAB PO STA (16:05)
[2017-07-14 16:34] LABS: URINE BLOOD (Dip) POC Trace-lysed (NEGATIVE)
--- NOTE | 2017-07-14 17:09 | RADRPT ---
PROCEDURE: XR Chest. CLINICAL INDICATION: Shortness of breath TECHNIQUE: PA view of the chest was obtained. COMPARISON: None. FINDINGS: The cardiomediastinal silhouette is within normal limits. The lungs are clear. No pleural effusion or pneumothorax is identified. Visualized osseous structures appear intact. IMPRESSION: No evidence of active cardiopulmonary disease. RPTAT: VV .Ja Gordon MD, Date Time Electronically viewed and signed by .Ja Gordon MD, on 07/14/2017 17:09 .O/
--- NOTE | 2017-07-14 17:20 | RADRPT ---
PROCEDURE: XR Cervical Spine 3 Views. CLINICAL INDICATION: Neck pain. TECHNIQUE: AP, lateral and odontoid views of the cervical spine were performed. The images were re viewed on a PACS workstation. COMPARISON: [facility] 10/25/2015 FINDINGS: Cervical spine demonstrates a normal lordosis. No fractures or destructive bony lesions are observe d. Intervertebral disk heights appear normal. Facet joints are unremarkable. The soft tissues are grossly unremarkable. IMPRESSION: Unremarkable cervical spine. If further characterization is needed CT or MRI could be helpful. If there is high clinical suspicion for traumatic injury, further evaluation with CT should be consi dered. RPTAT: AA .Thomas Abad MD, MD Date Time Electronically viewed and signed by .Thomas Abad MD, on 07/14/2017 17:19 .P/
[2017-07-14] MEDS ORDERED: IBUP400T22 PO (17:26)
--- NOTE | 2017-07-14 17:55 | ERD ---
ER Documentation Chief Complaint Date/Time DATE: 07/14/17 TIME: 17:52 Chief Complaint upper back pain with numbness to left arm HPI 32-year-old female presents to the emergency department presents to the emergency department complaining of left posterior back pain with numbness and tingling in that region x 1 day. Patient states that she is also complaining of neck pain and numbness and tingling in her left arm. Patient rates as moderate in severity. She states that she had no trauma. She denies any chest pain or shortness of breath. She denies taking any medications for this. ROS All systems reviewed and are negative except as per history of present illness. Medications Home Meds Active Scripts Ibuprofen* (Ibuprofen*) 400 Mg Tablet, 400 MG PO Q6H Y for PAIN, #30 TAB Prov:CARLOS A CALLAWAY PA-C 07/14/17 Multivit/Min/Fol Ac/Iron/Pren* ( S*) 1 Tab Tab, 1 TAB PO DAILY, #30 TAB Prov:SOBEIDA SIU PA-C 09/24/16 Reported Medications Calcium Carbonate/Vitamin D3 (OYSTER SHELL CALCIUM TABLET) 1 Each Tablet, 1 EACH PO DAILY, TAB 02/10/17 Ferrous Sulfate (Iron) 325 Mg Capsule.er, 325 MG PO DAILY, CAP 02/10/17 Allergies Allergies: Coded Allergies: No Known Drug Allergies (Verified Allergy, Unknown, 02/10/17) PMhx/Soc History of Surgery: No Anesthesia Reaction: No Hx Neurological Disorder: No Hx Respiratory Disorders: No Hx Cardiac Disorders: No Hx Psychiatric Problems: No Hx Miscellaneous Medical Probl: No Hx Alcohol Use: No Hx Substance Use: No Hx Tobacco Use: No Physical Exam Vitals Vital Signs Date Time Temp Pulse Resp B/P Pulse Ox O2 Delivery O2 Flow Rate FiO2 07/14/17 15:11 98.1 86 18 110/58 98 Physical Exam GENERAL: WD/WN, in no apparent distress, non-toxic appearing HENT: NC/AT EYES: Conjunctiva normal NECK: Supple, tenderness to palpation in the left trapezius, tender to palpation in the cervical spine PULM: Normal labored breathing CV: Good capillary refill GI: Non-distended, no guarding BACK: no deformities noted, normal spinal curvature EXT: No clubbing, cyanosis, or edema NEURO: Moves on all fours, sensation intact, normal gait SKIN: intact PSYCH: Normal mood Results 24 hrs Laboratory Tests Test 07/14/17 16:41 Bedside Urine pH (LAB) 6.0 Bedside Urine Protein (LAB) Trace Bedside Urine Glucose (UA) Negative Bedside Urine Ketones (LAB) Negative Bedside Urine Blood Trace-lysed Bedside Urine Nitrite (LAB) Negative Bedside Urine Leukocyte Esterase (L Trace Current Medications Medications (Trade) Dose Ordered Sig/Rajeev Route PRN Reason Start Time Stop Time Status Last Admin Dose Admin Ibuprofen (Motrin) 600 mg ONCE STAT PO 07/14/17 16:05 07/14/17 16:07 DC 07/14/17 16:29 Procedures/MDM This is a 32-year-old female presenting emergency department with signs and symptoms most consistent with cervical radiculopathy. Cervical x-ray did not show any evidence of fracture dislocation. Chest x-ray did not show any evidence of infiltrates, rib fracture, pneumothorax or pleural effusion. Patient has stable vital signs. I have a low suspicion for ACS. Patient is neurovascular and stable to be discharged home to follow-up with her primary care physician. Prescription for ibuprofen was provided. Discussed to follow- up with primary care physician to get a referral to get an MRI. Patient understands and agrees to this plan Departure Diagnosis: Primary Impression: Acute cervical radiculopathy Additional Impression: Back pain Condition: Stable Patient Instructions: Back Pain (Acute Or Chronic), Radiculopathy, Cervical Additional Instructions: FOLLOW UP WITH YOUR PRIMARY CARE PHYSICIAN TOMORROW.Return to this facility if you are not improving as expected. Take all medicines as directed. Return to this facility if you are not improving as expected. CARLOS A CALLAWAY PA-C Jul 14, 2017 17:55
== END 2017-07-14 18:04 | disposition home or self-care (01) ==
LOC: FTE 14:47
DX: M54.12 Radiculopathy, cervical region (principal)
CPT/HCPCS: 71010; 72040; 81003; 99284; Z7610

== ENCOUNTER 2017-11-02 02:54 | Emergency (ER) | payer BC ==
[~2017-11-02] VITALS: Ht 152.4 cm; Wt 54.3 kg
[~2017-11-02 02:54] MED LIST changes: +IBUP400T22 PO
[2017-11-02 03:04] VITALS: Ht 152.4 cm; Wt 54.3 kg
[2017-11-02] MEDS ORDERED: ONDANSETRON 4 MG INJ IV STA (03:13)
[2017-11-02] MEDS ORDERED: SOD CHLORIDE 0.9% 1,000 ML IV STA (03:13)
[2017-11-02] MEDS ORDERED: morphine 2 MG INJ IV STA (03:13)
[2017-11-02 04:18] LABS: BASOPHIL # 0.1 10^3/ul (0.0-0.1); BASOPHILS % 0.6 % (0.0-2.0); EOSINOPHILS # 0.2 10^3/ul (0.0-0.5); EOSINOPHILS % 1.4 % (0.0-7.0); HEMATOCRIT 39.3 % (37.0-47.0); HEMOGLOBIN 13.1 g/dl (12.0-16.0); LYMPHOCYTES # 3.9 10^3/ul (0.8-2.9); LYMPHOCYTES % 36.2 % (15.0-51.0); MEAN CORPUSCULAR HEMOGLOBIN 28.5 pg (29.0-33.0); MEAN CORPUSCULAR HGB CONC 33.3 g/dl (32.0-37.0); MEAN CORPUSCULAR VOLUME 85.6 fl (82.0-101.0); MEAN PLATELET VOLUME 9.4 fl (7.4-10.4); MONOCYTE # 0.6 10^3/ul (0.3-0.9); MONOCYTES % 5.9 % (0.0-11.0); NEUTROPHILS % 55.5 % (39.0-77.0); PLATELET COUNT 355 10^3/UL (140-415); RED BLOOD COUNT 4.59 10^6/ul (4.20-5.40); RED CELL DISTRIBUTION WIDTH 13.2 % (11.5-14.5); WHITE BLOOD COUNT 10.9 10^3/ul (4.8-10.8)
[2017-11-02 04:19] LABS: ADD UMIC YES; UR ASCORBIC ACID NEGATIVE (NEGATIVE); UR BILIRUBIN (Dip) NEGATIVE (NEGATIVE); UR BLOOD (Dip) 2+ mg/dL (NEGATIVE); UR CLARITY SLIGHTLY CLOUDY (CLEAR); UR COLOR YELLOW (YELLOW); UR GLUCOSE (Dip) NEGATIVE (NEGATIVE); UR KETONES (Dip) NEGATIVE (NEGATIVE); UR LEUKOCYTE ESTERASE (Dip) NEGATIVE Leu/ul (NEGATIVE); UR NITRITE (Dip) NEGATIVE (NEGATIVE); UR RBC 7 /HPF (0-5); UR SQUAMOUS EPITHELIAL CELL MODERATE /HPF (FEW); UR TOTAL PROTEIN (Dip) NEGATIVE (NEGATIVE); UR UROBILINOGEN (Dip) NEGATIVE (NEGATIVE)
--- NOTE | 2017-11-02 04:50 | RADRPT ---
PROCEDURE: ULTRASOUND LIMITED ABDOMEN CLINICAL INDICATION: 32-year-old female with abdominal pain. TECHNIQUE: Multiple sonographic of the right upper quadrant of the abdomen were obtained. The imag es were reviewed on a PACS workstation. COMPARISON: None. FINDINGS: The pancreas is partially visualized and is otherwise without abnormal echogenicity. The liver displays normal echogenicity. The liver measures 16.8 cm in length. No evidence of intrah epatic biliary ductal dilatation is seen. The portal and hepatic veins are unremarkable. The gallbladder a solitary small shadowing stone measuring approximately 6 mm. The gallbladder wall thickness is within normal limits measuring 1.9 mm. No pericholecystic fluid is seen. The common milad e duct measures 3.1 mm and is not dilated. The right kidney displays normal echogenicity. The right kidney measures 9.7 cm in maximal length. N o caliectasis or hydronephrosis is seen. No free fluid is seen. IMPRESSION: Gallstone. .Omega Machado MD, MD Date Time Electronically viewed and signed by .Omega Machado MD, on 11/02/2017 04:50 .M/
[2017-11-02 05:11] LABS: ALBUMIN 4.7 g/dl (3.3-4.9); ALBUMIN/GLOBULIN RATIO 1.23; CALCIUM 10.1 mg/dl (8.4-10.2); CREATININE 0.58 mg/dl (0.44-1.00); POTASSIUM 3.6 mmol/L (3.5-5.1); TOTAL PROTEIN 8.5 g/dl (6.1-8.1)
[2017-11-02] MEDS ORDERED: NAPR-688 PO (06:10)
[2017-11-02] MEDS ORDERED: HYDR-906 PO (06:10)
--- NOTE | 2017-11-02 06:19 | ERD ---
ER Documentation Chief Complaint Chief Complaint right upper abd pain radiating to right back ROS All systems reviewed and are negative except as per history of present illness. Medications Home Meds Active Scripts Naproxen* (Naproxen*) 500 Mg Tablet, 500 MG PO BID Y for PAIN, #20 TAB Prov:LOAN PEREZ DO 11/02/17 Hydrocodone/Acetaminophen ([place] 5-325 Tablet) 1 Each Tablet, 1 EACH PO Q6, #12 TAB Prov:LOAN PEREZ DO 11/02/17 Multivit/Min/Fol Ac/Iron/Pren* ( S*) 1 Tab Tab, 1 TAB PO DAILY, #30 TAB Prov:SOBEIDA SIU PA-C 09/24/16 Reported Medications Calcium Carbonate/Vitamin D3 (OYSTER SHELL CALCIUM TABLET) 1 Each Tablet, 1 EACH PO DAILY, TAB 02/10/17 Discontinued Reported Medications Ferrous Sulfate (Iron) 325 Mg Capsule.er, 325 MG PO DAILY, CAP 02/10/17 Discontinued Scripts Ibuprofen* (Ibuprofen*) 400 Mg Tablet, 400 MG PO Q6H Y for PAIN, #30 TAB Prov:CARLOS A CALLAWAY PA-C 07/14/17 Allergies Allergies: Coded Allergies: No Known Drug Allergies (Unverified Allergy, Unknown, 11/02/17) PMhx/Soc Medical and Surgical Hx: pt denies Medical Hx History of Surgery: Yes (c section) Anesthesia Reaction: No Hx Neurological Disorder: No Hx Respiratory Disorders: No Hx Cardiac Disorders: No Hx Psychiatric Problems: No Hx Miscellaneous Medical Probl: No Hx Alcohol Use: No Hx Substance Use: No Hx Tobacco Use: No Smoking Status: Never smoker Physical Exam Vitals Vital Signs Date Time Temp Pulse Resp B/P Pulse Ox O2 Delivery O2 Flow Rate FiO2 11/02/17 05:05 97.0 81 16 110/68 99 Room Air 11/02/17 03:04 97.0 95 18 126/75 99 Physical Exam Const: [] Head: Atraumatic Eyes: Normal Conjunctiva ENT: Normal External Ears, Nose and Mouth. Neck: Full range of motion..~ No meningismus. Resp: Clear to auscultation bilaterally Cardio: Regular rate and rhythm, no murmurs Abd: Soft, non tender, non distended. Normal bowel sounds Skin: No petechiae or rashes Back: No midline or flank tenderness Ext: No cyanosis, or edema Neur: Awake and alert Psych: Normal Mood and Affect Result Diagram: 11/02/17 0321 11/02/17 0321 Results 24 hrs Laboratory Tests Test 11/02/17 03:21 White Blood Count 10.910^3/ul Red Blood Count 4.5910^6/ul Hemoglobin 13.1g/dl Hematocrit 39.3% Mean Corpuscular Volume 85.6fl Mean Corpuscular Hemoglobin 28.5pg Mean Corpuscular Hemoglobin Concent 33.3g/dl Red Cell Distribution Width 13.2% Platelet Count 71339^3/UL Mean Platelet Volume 9.4fl Neutrophils % 55.5% Lymphocytes % 36.2% Monocytes % 5.9% Eosinophils % 1.4% Basophils % 0.6% Nucleated Red Blood Cells % 0.0/100WBC Neutrophils # 6.010^3/ul Lymphocytes # 3.910^3/ul Monocytes # 0.610^3/ul Eosinophils # 0.210^3/ul Basophils # 0.110^3/ul Nucleated Red Blood Cells # 0.010^3/ul Urine Color YELLOW Urine Clarity SLIGHTLY CLOUDY Urine pH 6.0 Urine Specific [place] 1.020 Urine Ketones NEGATIVEmg/dL Urine Nitrite NEGATIVEmg/dL Urine Bilirubin NEGATIVEmg/dL Urine Urobilinogen NEGATIVEmg/dL Urine Leukocyte Esterase NEGATIVELeu/ul Urine Microscopic RBC 7/HPF Urine Microscopic WBC 1/HPF Urine Squamous Epithelial Cells MODERATE/HPF Urine Hemoglobin 2+mg/dL Urine Glucose NEGATIVEmg/dL Urine Total Protein NEGATIVEmg/dl Sodium Level 143mmol/L Potassium Level 3.6mmol/L Chloride Level 106mmol/L Carbon Dioxide Level 26mmol/L Anion Gap 15 Blood Urea Nitrogen 15mg/dl Creatinine 0.58mg/dl Glucose Level 109mg/dl Calcium Level 10.1mg/dl Total Bilirubin Pending Direct Bilirubin Pending Indirect Bilirubin Pending Aspartate Amino Transf (AST/SGOT) 24IU/L Alanine Aminotransferase (ALT/SGPT) 32IU/L Alkaline Phosphatase 132IU/L Total Protein 8.5g/dl Albumin 4.7g/dl Globulin 3.80g/dl Albumin/Globulin Ratio 1.23 Lipase 212U/L Current Medications Medications (Trade) Dose Ordered Sig/Rajeev Route PRN Reason Start Time Stop Time Status Last Admin Dose Admin Sodium Chloride (NS) 1,000 ml @ 1,000 mls/hr Q1H STAT IV 11/02/17 03:13 11/02/17 04:12 DC 11/02/17 03:35 Morphine Sulfate (morphine) 2 mg ONCE STAT IV 11/02/17 03:13 11/02/17 03:19 DC 11/02/17 04:23 Ondansetron HCl (Zofran Inj) 4 mg ONCE STAT IV 11/02/17 03:13 11/02/17 03:19 DC 11/02/17 03:35 Procedures/MDM Biliary colic secondary to a gallstone with no signs of biliary obstruction. Normal liver enzymes. Bilirubin is pending because current lab is having difficulty with bilirubins. Patient will be called if this is abnormal. She is breast-feeding he does not want much pain medication but she did not have much pain when I was not palpating her. She did eventually accept 2 mg of morphine. She has minimal pain is well appearing. I am going to discharge her with primary care injections to get a surgical referral. Discharging her with [place] for severe pain as well as naproxen. She had no nausea. Gallbladder ultrasound interpretation: Gallstones without evidence of gallbladder wall thickening, pericystic colic fluid, or ductal dilation. Departure Diagnosis: Primary Impression: Biliary colic Condition: Stable Patient Instructions: Biliary Colic With Gallstone (Confirmed) Additional Instructions: Call your primary care doctor TOMORROW for an appointment during the next 2-3 days. Request a referral for a general surgeon. See the doctor sooner or return here if your condition worsens before your appointment time. LOAN PEREZ DO Nov 02, 2017 06:19
[2017-11-02 06:32] LABS: BILIRUBIN,INDIRECT 0.1 mg/dl (0-1.1); BILIRUBIN,TOTAL 0.1 mg/dl (0.2-1.3)
[2017-11-02 07:14] VITALS: BP 124/68; PULSE 84; RESP 17; TEMP 98.2
== END 2017-11-02 07:15 | disposition home or self-care (01) ==
LOC: E/R 02:54
DX: K80.50 Calculus of bile duct without cholangitis or cholecystitis without obstruction (principal)
CPT/HCPCS: 36415; 76705; 80053; 81001; 83690; 85025; 96374; 96375; 99285; J2270; J2405; J7030

== ENCOUNTER 2018-02-07 07:41 | Day surgery (SDC) | END 2018-02-07 13:30 | disposition home or self-care (01) ==

== ENCOUNTER 2018-06-16 11:25 | Emergency (ER) | END 2018-06-16 12:20 | disposition home or self-care (01) ==

== ENCOUNTER 2019-01-04 10:43 | Emergency (ER) | payer BC ==
[~2019-01-04] VITALS: Wt 56.8 kg
[~2019-01-04 10:43] MED LIST changes: +ACET325T33 PO; +AMOX1TAB10 PO; -CALC-516 PO; -FERR325C PO; +FLUT9.9S NASAL; -IBUP400T22 PO; +ONDA4TAB8 PO; -PRENAT PO
[2019-01-04 10:44] VITALS: BP 119/63; PULSE 96; RESP 20
[2019-01-04] MEDS ORDERED: FLUT9.9S NASAL (11:18)
[2019-01-04] MEDS ORDERED: AZIT250T PO (11:18)
--- NOTE | 2019-01-04 13:43 | ERD ---
ER Documentation Chief Complaint Chief Complaint r. ear plugged up, sore throat, dizzy HPI 33-year-old female presenting with pain to right ear. She states that for she feels like it is clogged and she had a mild sore throat. She had some burning eyes with fevers. Is slightly congested. Denies any medical problems. NKDA. Surgical history is gallstones. Social history denies. LNMP December 18. ROS All systems reviewed and are negative except as per history of present illness. Medications Home Meds Active Scripts Fluticasone Propionate (Flonase Allergy Relief) 9.9 Ml [place].susp, 1 SPRAY NASAL BID, #1 BOTTLE TO EACH NOSTRIL Prov:BRENNON YEAGER PA-C 01/04/19 Azithromycin* (Zithromax*) 250 Mg Tablet, 250 MG PO .ZPACK DIRECTED, #6 TAB TAKE 500 MG (2 TABS) THE FIRST DAY THEN 250 MG (1 TAB) DAYS 2-5 Prov:BRENNON YEAGER PA-C 01/04/19 Ondansetron Hcl* (Zofran*) 4 Mg Tablet, 4 MG PO Q6H for NAUSEA AND/OR VOMITING, #30 TAB Prov:SERGIO ROLON 06/16/18 Acetaminophen* (Tylenol*) 325 Mg Tablet, 2 TAB PO Q8 PRN for PAIN AND OR ELEVATED TEMP, #20 TAB Prov:SERGIO ROLON 06/16/18 Fluticasone Propionate (Flonase Allergy Relief) 9.9 Ml [place].susp, 1 SPRAY NASAL BID, #1 BOTTLE TO EACH NOSTRIL Prov:SERGIO ROLON 06/16/18 Amoxicillin/Potassium Clav (Amox-Clav 875-125 mg Tablet) 875-125 mg Tab, 1 TAB PO BID for 7 Days, #14 TAB Prov:SERGIO ROLON 06/16/18 Allergies Allergies: Coded Allergies: No Known Drug Allergies (Unverified Allergy, Unknown, 02/07/18) PMhx/Soc History of Surgery: Yes (CSECTION X1) Anesthesia Reaction: No Hx Neurological Disorder: No Hx Respiratory Disorders: No Hx Cardiac Disorders: No Hx Psychiatric Problems: No Hx Miscellaneous Medical Probl: No Hx Alcohol Use: No Hx Substance Use: Yes Hx Tobacco Use: No Sm[facility] Status[facility] History: No diabetes, No coronary disease, No other Physical Exam Vitals Vital Signs Date Temp Pulse Resp B/P (MAP) Pulse Ox O2 O2 Flow FiO2 Time Delivery Rate 01/04/19 97.8 96 20 119/63 99 10:44 (81) Physical Exam GENERAL: The patient is well-appearing, well-nourished, in no acute distress HEENT: Atraumatic. Conjunctivae are pink. Pupils equal, round, and reactive to light. There is no scleral icterus. Tympanic membranes clear bilaterally. Oropharynx clear. NECK: C-spine is soft and supple. There is no meningismus. There is no cervical lymphadenopathy. CHEST: Clear to auscultation bilaterally. There are no rales, wheezes or rhonchi. HEART: Regular rate and rhythm. No murmurs, clicks, rubs or gallops. Procedures/MDM MDM: 33-year-old female presenting with URI symptoms. I have low suspicion for meningitis or sepsis. Patient is given antibiotics but recommended to wait to take antibiotics for another 3-4 days and only take if symptoms worsen. I have low suspicion for pneumonia. I have low suspicion for current [employer] infection that requires antibiotics. Patient will be discharged with supportive medications. Patient is told if symptoms change or worsen to return immediately to the ER. All questions answered at discharge Departure Diagnosis: Primary Impression: Ear problem Condition: Stable Patient Instructions: Uri, Viral, No Abx (Adult) Referrals: [facility] (PCP) Additional Instructions: FOLLOW UP WITH YOUR PRIMARY CARE PHYSICIAN TOMORROW.Return to this facility if you are not improving as expected. BRENNON YEAGER PA-C Jan 04, 2019 12:14
== END 2019-01-04 11:51 | disposition home or self-care (01) ==
LOC: FTE 10:43
DX: H93.91 Unspecified disorder of right ear (principal); F17.210 Nicotine dependence, cigarettes, uncomplicated
CPT/HCPCS: 99283